=== PATIENT | male | born 1990 | race Caucasian/White ===

== ENCOUNTER 2017-02-26 14:28 | Emergency (ER) | payer OTHER | END 2017-02-26 14:45 | disposition home or self-care (01) | LOC: CED 14:28 | DX: T40.1X1A Poisoning by heroin, accidental (unintentional), initial encounter (principal); T43.621A Poisoning by amphetamines, accidental (unintentional), initial encounter; T40.4X1A Poisoning by other synthetic narcotics, accidental (unintentional), initial encounter; Y92.9 Unspecified place or not applicable | CPT/HCPCS: 99282 ==